=== PATIENT | female | born 1970 ===

== ENCOUNTER 2017-02-25 06:49 | Emergency (ER) | payer OTHER ==
[2017-02-25 07:05] VITALS: TEMP 98.6
[2017-02-25] MEDS ORDERED: ONDANSETRON 4 MG/2 ML VIAL IVP ONE (07:26)
[2017-02-25] MEDS ORDERED: NS 1,000 ML IV ONE (07:26)
[2017-02-25 07:30] LABS: % IMMATURE GRANULYOCYTES 0.2 % (0.0-1.1); ABSOLUTE IMMATURE GRANULOCYTES 0.01 10^3/uL (0.00-0.10); ADD DIFF? NO; ADD MORPH? NO; ADD SCAN? YES; FRAGMENT RBC FLAG 0 (0-99); HEMATOCRIT 36.9 % (38.0-47.0); HEMOGLOBIN 12.8 g/dL (12.6-16.3); LEFT SHIFT FLG 0 (0-99); LIPEMIA HEMOLYSIS FLAG 90 (0-99); MEAN CELL HEMOGLOBIN 33.2 pg (27.9-34.1); MEAN CELL HEMOGLOBIN CONCENTR. 34.7 g/dL (32.4-36.7); MEAN CELL VOLUME 95.8 fL (81.5-99.8); MEAN PLATELET VOLUME 8.7 fL (8.7-11.7); PLATELET CLUMPS FLAG 0 (0-99); PLATELET COUNT 232 10^3/uL (150-400); RED BLOOD CELL COUNT 3.85 10^6/uL (4.18-5.33); RED CELL DISTRIBUTION WIDTH 14.6 % (11.5-15.2)
[2017-02-25 07:34] LABS: ATYPICAL LYMPHOCYTE FLAG 180 (0-99)
[2017-02-25] MEDS ORDERED: KETOROLAC 15 MG/1 ML SDV IVP ONE (07:36)
--- NOTE | 2017-02-25 07:39 | EDPHY ---
H & P Time Seen by Provider: 02/25/17 07:25 HPI/ROS: CHIEF COMPLAINT: Vomiting, sore throat HISTORY OF PRESENT ILLNESS: 46-year-old female presents with vomiting and sore throat. Last evening after eating dinner, she vomited twice. With the 2nd episode of emesis, she had streaks of blood. After vomiting, she developed a sore throat. The sore throat is moderate and increases with swallowing. The nausea has resolved and she is able to tolerate oral fluids well. No abdominal pain, diarrhea or fever. REVIEW OF SYSTEMS: Constitutional: No fever, no chills Eyes: No visual changes Respiratory: No cough, no shortness of breath Cardiac: No chest pain Gastrointestinal: no abdominal pain Genitourinary: No hematuria, no dysuria Musculoskeletal: No leg pain or swelling Skin: No rash Neurological: No headache, no weakness Psychiatric: No depression Past Medical/Surgical History: Rheumatoid arthritis Social History: No recent alcohol Smoking Status: Current some day smoker Physical Exam: General Appearance: Alert, pleasant Eyes: Pupils equal and round, no conjunctival pallor ENT, Mouth: no pharyngeal erythema or swelling, no oral blood present, Mucous membranes moist Neck: Normal inspection, no stridor, tenderness or swelling Respiratory: Lungs are clear to auscultation Cardiovascular: Regular rate and rhythm Gastrointestinal: Abdomen is soft and nontender Neurological: A&O, nonfocal, normal gait Skin: Warm and dry, no rash Extremities: normal inspection Psychiatric: Mood and affect normal Constitutional: Initial Vital Signs Temperature (C) 37.0 C 02/25/17 06:49 Heart Rate 96 02/25/17 06:49 Respiratory Rate 18 02/25/17 06:49 Blood Pressure 121/75 H 02/25/17 06:49 O2 Sat (%) 98 02/25/17 06:49 O2 Delivery Mode Room Air Allergies/Adverse Reactions: No Known Allergies Allergy (Verified 02/25/17 06:51) Home Medications: Medication Instructions Recorded Humira 02/25/17 Methotrexate 02/25/17 Ondansetron Odt [Zofran Odt 4 mg 4 mg PO Q4 PRN #6 tab 02/25/17 (*)] Medical Decision Making - Diagnostics Imaging Results: Imaging Impressions Soft Tissue Neck X-Ray 02/25/17 07:36 Impression: No convincing abnormality (given the mild flexion). If there is progression of the patient's symptoms, contrast-enhanced CT imaging could be considered. Findings were discussed with BRANDAN BHATT MD at 8:34, on 02/25/2017. ED Course/Re-evaluation: This patient presents with a sore throat after 2 episodes of vomiting. Likely acute gastritis, leading to small tear of esophagus/throat with vomiting, no evidence of serious GI bleed. She currently has no nausea and abdominal exam is normal. Toradol 15 mg IV given for throat irritation after vomiting. Soft tissue neck x-ray ordered and is normal. On reassessment, the patient feels much better and is ready to go home. She has no nausea. She has a slight sore throat, much improved. Differential Diagnosis: Differential diagnosis includes though it is not limited to for esophageal perforation, appendicitis, cholecystitis, diverticulitis, pyelonephritis, bowel perforation, small bowel obstruction. - Data Points Laboratory Results: Laboratory Results 02/25/17 07:20 02/25/17 07:20 02/25/17 02/25/17 07:20 07:20 WBC 4.23 10^3/uL 10^3/uL (3.80-9.50) RBC 3.85 10^6/uL L 10^6/uL (4.18-5.33) Hgb 12.8 g/dL g/dL (12.6-16.3) Hct 36.9 % L % (38.0-47.0) MCV 95.8 fL fL (81.5-99.8) MCH 33.2 pg pg (27.9-34.1) MCHC 34.7 g/dL g/dL (32.4-36.7) RDW 14.6 % % (11.5-15.2) Plt Count 232 10^3/uL 10^3/uL (150-400) MPV 8.7 fL fL (8.7-11.7) Neut % (Auto) 52.6 % % (39.3-74.2) Lymph % (Auto) 35.0 % % (15.0-45.0) [place] % (Auto) 8.0 % % (4.5-13.0) Eos % (Auto) 4.0 % % (0.6-7.6) Baso % (Auto) 0.2 % L % (0.3-1.7) Nucleat RBC Rel Count 0.0 % % (0.0-0.2) Absolute Neuts (auto) 2.22 10^3/uL 10^3/uL (1.70-6.50) Absolute Lymphs (auto) 1.48 10^3/uL 10^3/uL (1.00-3.00) Absolute Monos (auto) 0.34 10^3/uL 10^3/uL (0.30-0.80) Absolute Eos (auto) 0.17 10^3/uL 10^3/uL (0.03-0.40) Absolute Basos (auto) 0.01 10^3/uL L 10^3/uL (0.02-0.10) Absolute Nucleated RBC 0.00 10^3/uL 10^3/uL (0-0.01) Immature Gran % 0.2 % % (0.0-1.1) Seg Neutrophils % 53 % % Lymphocytes % 41 % % Monocytes % 3 % % Eosinophils % 2 % % Basophils % 1 % % Immature Gran # 0.01 10^3/uL 10^3/uL (0.00-0.10) Absolute Seg Neuts 2.24 10^/uL 10^/uL (1.70-6.50) Absolute Lymphocytes 1.73 10^3/uL 10^3/uL (1.00-3.00) Absolute Monocytes 0.13 10^3/uL L 10^3/uL (0.30-0.80) Absolute Eosinophils 0.08 10^3/uL 10^3/uL (0.03-0.40) Absolute Basophils 0.04 10^3/uL 10^3/uL (0.02-0.10) RBC/WBC/PLT Morphology NORMAL (NORMAL) Atypical Lymphocytes 1+ H Platelet Estimate ADEQUATE (ADEQ) Sodium 142 mEq/L mEq/L (134-144) Potassium 4.3 mEq/L mEq/L (3.5-5.2) Chloride 107 mEq/L mEq/L (97-110) Carbon Dioxide 25 mEq/l mEq/l (22-31) Anion Gap 10 mEq/L mEq/L (8-16) BUN 12 mg/dL mg/dL (7-23) Creatinine 0.7 mg/dL mg/dL (0.6-1.0) Estimated GFR > 60 Glucose 90 mg/dL mg/dL (70-100) Calcium 9.2 mg/dL mg/dL (8.5-10.4) Total Bilirubin 0.6 mg/dL mg/dL (0.1-1.4) Conjugated Bilirubin 0.2 mg/dL mg/dL (0.0-0.5) Unconjugated Bilirubin 0.4 mg/dL mg/dL (0.0-1.1) AST 27 IU/L IU/L (14-46) ALT 41 IU/L IU/L (9-52) Alkaline Phosphatase 81 IU/L IU/L (38-126) Total Protein 7.0 g/dL g/dL (6.3-8.2) Albumin 3.6 g/dL g/dL (3.5-5.0) Lipase 105 IU/L IU/L (23-300) Medications Given: Discontinued Medications Sodium Chloride (Ns) 1,000 mls @ 0 mls/hr IV EDNOW ONE; Wide Open PRN Reason: Protocol Stop: 02/25/17 07:27 Last Admin: 02/25/17 07:42 Dose: 1,000 mls Ketorolac Tromethamine (Toradol) 15 mg IVP EDNOW ONE Stop: 02/25/17 07:37 Last Admin: 02/25/17 07:43 Dose: 15 mg Ondansetron HCl (Zofran) 4 mg IVP EDNOW ONE Stop: 02/25/17 07:27 Last Admin: 02/25/17 07:42 Dose: 4 mg Departure - Departure Disposition: Home, Routine, Self-Care Clinical Impression: Sore throat Vomiting Qualifiers: Vomiting type: hematemesis Nausea presence: with nausea Qualified Code(s): K92.0 - Hematemesis Condition: Good Instructions: Acute Nausea and Vomiting (ED), Hematemesis (ED) Additional Instructions: Clear fluids for 24 hours. Return for worsening symptoms or any concerns. Liquidos annette por 24 horas. Regrese si lo sintomas empeoran o cualquier preocupacion. Referrals: [facility] [[facility]] - 1 day, if not improved Prescriptions: Ondansetron Odt [Zofran Odt 4 mg (*)] 4 mg PO Q4 PRN #6 tab PRN Reason: Nausea
[2017-02-25 07:53] LABS: ALANINE AMINOTRANSFERASE 41 IU/L (9-52); ALBUMIN 3.6 g/dL (3.5-5.0); ALKALINE PHOSPHATASE 81 IU/L (38-126); ANION GAP 10 mEq/L (8-16); ASPARTATE AMINOTRANSFERASE 27 IU/L (14-46); BILIRUBIN,TOTAL 0.6 mg/dL (0.1-1.4); BILIRUBIN-CONJUGATED 0.2 mg/dL (0.0-0.5); BILIRUBIN-UNCONJUGATED 0.4 mg/dL (0.0-1.1); CALCIUM 9.2 mg/dL (8.5-10.4); CARBON DIOXIDE 25 mEq/l (22-31); CHLORIDE 107 mEq/L (97-110); CREATININE 0.7 mg/dL (0.6-1.0); GLOMERULAR FILTRATION RATE > 60; GLUCOSE 90 mg/dL (70-100); POTASSIUM 4.3 mEq/L (3.5-5.2); SODIUM 142 mEq/L (134-144)
[2017-02-25 08:22] LABS: SCAN POSITIVE
[2017-02-25 08:27] LABS: PLATELET ESTIMATE ADEQUATE (ADEQ)
[2017-02-25 08:56] VITALS: BP 108/54; PULSE 69; RESP 16; O2SAT 95
== END 2017-02-25 08:56 | disposition home or self-care (01) ==
DX: J02.9 Acute pharyngitis, unspecified (principal); F17.200 Nicotine dependence, unspecified, uncomplicated; K92.0 Hematemesis; E86.9 Volume depletion, unspecified
CPT/HCPCS: 96374; J1885; J2405